=== PATIENT | female | born 1985 | race Caucasian/White ===

== ENCOUNTER 2017-05-11 14:14 | Emergency (ER) | payer SELFPAY ==
[~2017-05-11] VITALS: Ht 162.6 cm; Wt 88.5 kg
--- NOTE | 2017-05-11 14:37 | PHYS DOC ---
Past History Past Medical History: Fibromyalgia Past Surgical History: Appendectomy, , Gastric Bypass, Tonsillectomy Smoking: Non-smoker Alcohol Use: Occasionally Drug Use: None Adult General Chief Complaint Chief Complaint: FACE PROBLEM HPI HPI Patient is a pleasant 31-year-old otherwise healthy female who presents with a history of fibromyalgia who was struck in the face by a softball late last evening while playing a game with her colleagues. She was not wearing a facemask helmet and she was struck by the ball as he came off the hitters back. It struck her on the chin. She denies any loss of conscious, denies any focal neurologic deficits but has complained about amnesia to the event. She is suffering from bilateral lower jaw pain that is increased with moving her jaw chewing food and direct pressure over the cheeks. Patient denies any problems swallowing, change in her voice. Patient has not taken anything to help with her symptoms. She does admit she was drinking alcohol last night prior to the injury. Review of Systems Review of Systems Constitutional: Denies fever or chills [] Eyes: Denies change in visual acuity, redness, or eye pain [] HENT: Denies nasal congestion or sore throat [] Respiratory: Denies cough or shortness of breath [] Cardiovascular: No additional information not addressed in HPI [] GI: Denies abdominal pain, nausea, vomiting, bloody stools or diarrhea [] : Denies dysuria or hematuria [] Musculoskeletal: Denies back pain or joint pain [] Integument: Denies rash or skin lesions [] Neurologic: She does complain of a headache and jaw pain bilaterally. Endocrine: Denies polyuria or polydipsia [] Current Medications Current Medications Current Medications Medications (Trade) Dose Ordered Sig/Joselito Start Time Stop Time Status Last Admin Dose Admin Acetaminophen/ Hydrocodone Bitart (Lortab 5/325) 2 tab 1X ONCE 05/11/17 14:45 05/11/17 14:46 UNV Allergies Allergies Allergies Coded Allergies Type Severity Reaction Last Updated Verified azithromycin Allergy Intermediate jittery 12/14/13 Yes Penicillins Allergy Unknown 12/14/13 Yes Physical Exam Physical Exam The vital signs recorded on the note in the chart by nursing staff she is noted to be hypertensive. Constitutional: Well developed, well nourished, no acute distress, non-toxic appearance. [] HENT: Normocephalic, atraumatic, bilateral external ears normal, oropharynx moist, no oral exudates, nose normal. He does have evidence of tenderness at each of the TMJs bilaterally there is no locking or popping on evaluation of her oropharynx. Patient has no hematoma the floor the mouth. She has a negative tongue blade test Eyes: PERRLA, EOMI, conjunctiva normal, no discharge. [] Neck: Normal range of motion, no tenderness, supple, no stridor. [] Cardiovascular:Heart rate regular rhythm, no murmur [] Lungs & Thorax: Bilateral breath sounds clear to auscultation [] Skin: Warm, dry, no erythema, no rash. [Patient is a small 1.5 x 1.5 cm ecchymoses circular and round the right side of the chin. Patient has no midfacial instability consistent with a LeFort's fracture. Back: No tenderness, no CVA tenderness. [] Extremities: No tenderness, no cyanosis, no clubbing, ROM intact, no edema. [] Neurologic: Alert and oriented X 3, normal motor function, normal sensory function, no focal deficits noted. [] Psychologic: Affect normal, judgement normal, mood normal. [] EKG EKG [] Radiology/Procedures Radiology/Procedures [] [address] [place] [address] IMAGING REPORT Signed PATIENT: MADISON OLIVER ACCOUNT: [id number] : 1985 LOCATION: ER AGE: 31 SEX: F EXAM STATUS: REG ER ORD. PHYSICIAN: MARCELA LUNA MD REASON: trauma PROCEDURE: CT HEAD AND MAXILLOFACIAL WO CT head and max a facial without contrast 05/11/2017 Indication: Softball injury to the jaw with pain behind left ear. Comparison: None available Technique: Multiple axial noncontrast CT images of the head were obtained from the skull base through the vertex. Noncontrast CT images of the maxillofacial structures were performed with coronal and sagittal reformats provided. Findings: Head: The ventricles, sulci and basal cisterns are within normal limits. Murry-white matter differentiation is normal. There is no acute intracranial hemorrhage. There is no mass, mass effect or midline shift. Posterior fossa is within normal limits. Sellar and suprasellar cistern appear normal. Maxillofacial: Orbits are normal in appearance. Extraocular muscles are normal. Lamina appreciated is intact. Minimal mucosal thickening is noted within the left maxillary sinus. Otherwise, the paranasal sinuses are well aerated. Nasal septum is deviated to the left. Maxilla is intact. Pterygoid plates are normal. There is no acute fracture involving the mandible. Mandibular condyles are well seated without dislocation. No significant soft tissue abnormality is identified. Visualized portions of the submandibular space, and floor of mouth are normal. The dentition appear normal. Mastoid air cells are well aerated. Scalp and calvaria are normal. Impression: 1. There is no acute intracranial hemorrhage. 2. No acute fracture involving the maxillofacial structures. Course & Med Decision Making Course & Med Decision Making Pertinent Labs and Imaging studies reviewed. (See chart for details) Plan on arrival was to have CT of the head and face completed to ensure that no jaw fracture is present. Patient offered analgesic control to help with her symptoms. At this point her neuro exam is normal she has no midline tenderness to palpation over the neck is no reason for CT of the cervical spine. By history and physical patient may have suffered a concussion. Even if there are head CT is negative we will refer her to the concussion clinic for continued management. [] At this point CT scan of the head and face reveal no acute fracture no acute intracranial injury. I reviewed these images myself and agree with radiologist report. Patient tells me that their symptoms given during CC are improved. We reviewed labs and radiology reports with patient at the bedside. Patient's pressures significantly improved with pain management. It is now at 125/72 Impression: Chin contusion, TMJ strain. Dragon Disclaimer Dragon Disclaimer This chart was dictated in whole or in part using Voice Recognition software in a busy, high-work load, and often noisy Emergency Department environment. It may contain unintended and wholly unrecognized errors or omissions. Departure Departure: Impression: Primary Impression: Contusion of face Additional Impression: Strain of jaw Disposition: 01 HOME, SELF-CARE Condition: IMPROVED Referrals: PCP,NO (PCP) Patient Instructions: Concussion and Brain Injury, Facial or Scalp Contusion, Jaw, Range of Motion Exercises, [id number] Additional Instructions: Please use a soft mechanical diet for the next 48-72 hours to help manage her symptoms. Please return for any new or increasing symptoms of jaw pain despite treatment or if you have any questions or concerns. Scripts Hydrocodone Bit/Acetaminophen (HYDROCODONE-APAP 5-325 ) 1 Each Tablet 1 TAB PO PRN Q6HRS Y for PAIN for 5 Days, #10 TAB 0 Refills Prov: MARCELA LUNA MD 05/11/17 Problem Qualifiers MARCELA LUNA MD May 11, 2017 14:37
[2017-05-11] MEDS ORDERED: HYDROcodone/APAP 5/325MG 1 TAB TABLET PO ONE (15:00)
--- NOTE | 2017-05-11 15:27 | RAD ---
CT head and max a facial without contrast 05/11/2017 Indication: Softball injury to the jaw with pain behind left ear. Comparison: None available Technique: Multiple axial noncontrast CT images of the head were obtained from the skull base through the vertex. Noncontrast CT images of the maxillofacial structures were performed with coronal and sagittal reformats provided. Findings: Head: The ventricles, sulci and basal cisterns are within normal limits. Murry-white matter differentiation is normal. There is no acute intracranial hemorrhage. There is no mass, mass effect or midline shift. Posterior fossa is within normal limits. Sellar and suprasellar cistern appear normal. Maxillofacial: Orbits are normal in appearance. Extraocular muscles are normal. Lamina appreciated is intact. Minimal mucosal thickening is noted within the left maxillary sinus. Otherwise, the paranasal sinuses are well aerated. Nasal septum is deviated to the left. Maxilla is intact. Pterygoid plates are normal. There is no acute fracture involving the mandible. Mandibular condyles are well seated without dislocation. No significant soft tissue abnormality is identified. Visualized portions of the submandibular space, and floor of mouth are normal. The dentition appear normal. Mastoid air cells are well aerated. Scalp and calvaria are normal. Impression: 1. There is no acute intracranial hemorrhage. 2. No acute fracture involving the maxillofacial structures. PQRS Compliance Statement: One or more of the following individualized dose reduction techniques were utilized for this examination: 1. Automated exposure control 2. Adjustment of the mA and/or kV according to patient size 3. Use of iterative reconstruction technique
[2017-05-11 15:30] VITALS: BP 129/71
[2017-05-11] MEDS ORDERED: HYDR-2758 PO (15:40)
== END 2017-05-11 15:50 | disposition home or self-care (01) ==
LOC: ER 14:14
DX: S00.83XA Contusion of other part of head, initial encounter (principal); S03.41XA Sprain of jaw, right side, initial encounter; M79.7 Fibromyalgia; Z88.0 Allergy status to penicillin; Z88.1 Allergy status to other antibiotic agents; W21.07XA Struck by softball, initial encounter; Y93.64 Activity, baseball; Y99.8 Other external cause status; Y92.89 Other specified places as the place of occurrence of the external cause
CPT/HCPCS: 70450; 70486; 99284-25

== ENCOUNTER 2018-03-25 13:31 | Emergency (ER) | payer SELFPAY ==
[~2018-03-25 13:31] MED LIST: HYDR-2758 PO
[2018-03-25 13:36] VITALS: BP 150/97
[2018-03-25] MEDS ORDERED: FAMO-63 PO (14:31)
[2018-03-25] MEDS ORDERED: HYDR25TA PO (14:31)
--- NOTE | 2018-03-25 14:31 | PHYS DOC ---
Past History Past Medical History: Fibromyalgia Past Surgical History: Appendectomy, , Gastric Bypass, Tonsillectomy Smoking: Non-smoker Alcohol Use: Occasionally Drug Use: Marijuana Adult General Chief Complaint Chief Complaint: INSECT BITE HPI HPI 32-year-old female patient states she had bee sting to abdominal wall while she was tanning and felt shortness of breath that improved with taking Benadryl. Patient states she had history of allergic reaction to bee sting and afraid of the same reaction. Patient denies shortness of breath or throat swelling at this time. Review of Systems Review of Systems Constitutional: Denies fever or chills [] Eyes: Denies change in visual acuity, redness, or eye pain [] HENT: Denies nasal congestion or sore throat [] Respiratory: Denies cough or shortness of breath [] Cardiovascular: No additional information not addressed in HPI [] GI: Denies abdominal pain, nausea, vomiting, bloody stools or diarrhea [] : Denies dysuria or hematuria [] Musculoskeletal: Denies back pain or joint pain [] Integument: Denies rash or skin lesions [] Neurologic: Denies headache, focal weakness or sensory changes [] Endocrine: Denies polyuria or polydipsia [] All other systems were reviewed and found to be within normal limits, except as documented in this note. Allergies Allergies Allergies Coded Allergies Type Severity Reaction Last Updated Verified azithromycin Allergy Intermediate jittery 12/14/13 Yes Penicillins Allergy Unknown 12/14/13 Yes Physical Exam Physical Exam Constitutional: Well nourished, no acute distress, non-toxic appearance. [] HENT: Normocephalic, atraumatic, bilateral external ears normal, oropharynx moist, no oral exudates, nose normal. [] Eyes: PERRLA, EOMI, conjunctiva normal, no discharge. [] Neck: Normal range of motion, no tenderness, supple, no stridor. [] Cardiovascular:Heart rate regular rhythm, no murmur [] Lungs & Thorax: Bilateral breath sounds clear to auscultation [] Abdomen: Bowel sounds normal, soft, no tenderness, no masses, no pulsatile masses. [] Skin: Warm, dry, no erythema, 2 small area of erythema and abdominal wall without erythema or tenderness Back: No tenderness, no CVA tenderness. [] Extremities: No tenderness, no cyanosis, no clubbing, ROM intact, no edema. [] Neurologic: Alert and oriented X 3, normal motor function, normal sensory function, no focal deficits noted. [] Psychologic: Affect normal, judgement normal, mood normal. [] EKG EKG [] Radiology/Procedures Radiology/Procedures [] Course & Med Decision Making Course & Med Decision Making discharge: I've spoken with the patient and/or caregivers. I've explained the patient's condition, diagnosis and treatment plan based on information available to me at this time. I've answered the patient's and/or caregivers questions and addressed any concerns. The patient and/or caregivers have a good understanding the patient's diagnosis, condition and treatment plan as can be expected at this point. Vital signs have been stabilized. The patient's condition is stable for discharge from the emergency department. The patient will pursue further outpatient evaluation with her primary care provider or other designated consulting physician as outlined in the discharge instructions. Patient and/or caregivers are agreeable to this plan of care and follow-up instructions have been explained in detail. The patient and/or caregivers have received these instructions in written format and expressed understanding of these discharge instructions. The patient and her caregivers are aware that if any significant change in condition or worsening of symptoms should prompt him to immediately return to this of the closest emergency department. If an emergent department is not readily available I would encourage him to call 911. Rual Disclaimer Raul Disclaimer This electronic medical record was generated, in whole or in part, using a voice recognition dictation system. Departure Departure: Impression: Primary Impression: Insect bite Disposition: HOME, SELF-CARE (At 1429) Condition: STABLE Referrals: PCP,NO (PCP) Patient Instructions: Insect Bite Additional Instructions: Drink plenty of liquids Follow-up with your primary care physician in 3-5 days Return to ER if not getting better Scripts Hydroxyzine Hcl (HYDROXYZINE HCL) 25 Mg Tablet 1 TAB PO TID, #15 TAB Prov: YVONNE ANGULO MD 03/25/18 Famotidine (PEPCID) 20 Mg Tablet 1 TAB PO BID, #10 TAB 3 Refills Prov: YVONNE ANGULO MD 03/25/18 YVONNE ANGULO MD Mar 25, 2018 14:31
== END 2018-03-25 14:43 | disposition home or self-care (01) ==
LOC: ER 13:31
DX: T63.441A Toxic effect of venom of bees, accidental (unintentional), initial encounter (principal); M79.7 Fibromyalgia; Z88.1 Allergy status to other antibiotic agents; Z88.0 Allergy status to penicillin; Y92.89 Other specified places as the place of occurrence of the external cause
CPT/HCPCS: 99283

== ENCOUNTER 2019-04-23 11:53 | Emergency (ER) | payer SELFPAY ==
[~2019-04-23] VITALS: Ht 162.6 cm; Wt 108.9 kg
[~2019-04-23 11:53] MED LIST changes: +FAMO-63 PO; +HYDR-2155 PO; -HYDR-2758 PO; +HYDR25TA PO
--- NOTE | 2019-04-23 12:28 | PHYS DOC ---
Past History Past Medical History: Fibromyalgia Past Surgical History: Appendectomy, Cholecystectomy, , Tonsillectomy, Other Smoking: Non-smoker Alcohol Use: Occasionally Drug Use: None Adult General Chief Complaint Chief Complaint: DIFFICULTY SWALLOWING [facility] 33-year-old female presents with difficulty swallowing. She has noticed over the last 1 week that it seems like she has some intermittent pain with swallowing. He also feels like things go down more slowly. For the last 2 days, she's had a feeling of a lump in her throat almost all the time, especially with swallowing foods. She has some sensation of this with swallowing liquids or saliva. Patient had a Dennise-en-Y bypass years ago. She did not have a history of GERD prior to surgery. She has not been on medication since surgery either. She did try a couple of times yesterday and a Prilosec but they did not seem to help. She she denies fever or chills. No history of esophageal webs need for esophageal dilation. No family history of the same. Review of Systems Review of Systems Constitutional: Denies fever or chills [] Eyes: Denies change in visual acuity, redness, or eye pain [] HENT: Difficulty swallowing[] Respiratory: Denies cough or shortness of breath [] Cardiovascular: No additional information not addressed in HPI [] GI: Denies abdominal pain, nausea, vomiting, bloody stools or diarrhea [] : Denies dysuria or hematuria [] Musculoskeletal: Denies back pain or joint pain [] Integument: Denies rash or skin lesions [] Neurologic: Denies headache, focal weakness or sensory changes [] Endocrine: Denies polyuria or polydipsia [] All other systems were reviewed and found to be within normal limits, except as documented in this note. Allergies Allergies Allergies Coded Allergies Type Severity Reaction Last Updated Verified Penicillins Allergy Unknown 12/14/13 Yes Physical Exam Physical Exam Constitutional: Well developed, well nourished, no acute distress, non-toxic appearance. [] HENT: Normocephalic, atraumatic, bilateral external ears normal, oropharynx moist, no oral exudates, nose normal. [] Eyes: PERRLA, EOMI, conjunctiva normal, no discharge. [] Neck: Normal range of motion, no tenderness, supple, no stridor. [] Cardiovascular:Heart rate regular rhythm, no murmur [] Lungs & Thorax: Bilateral breath sounds clear to auscultation [] Abdomen: Bowel sounds normal, soft, no tenderness, no masses, no pulsatile masses. [] Skin: Warm, dry, no erythema, no rash. [] Back: No tenderness, no CVA tenderness. [] Extremities: No tenderness, no cyanosis, no clubbing, ROM intact, no edema. [] Neurologic: Alert and oriented X 3, normal motor function, normal sensory function, no focal deficits noted. [] Psychologic: Affect normal, judgement normal, mood normal. [] Current Patient Data Vital Signs Vital Signs Date Time Temp Pulse Resp B/P (MAP) Pulse Ox O2 Delivery O2 Flow Rate FiO2 04/23/19 12:00 98.4 69 20 99 Room Air EKG EKG [] Radiology/Procedures Radiology/Procedures [] Impressions: Exam performed: 2 views soft tissues neck HISTORY: Suspected foreign body. DATE OF SERVICE: 04/23/2019. COMPARISON: None available FINDINGS: AP and lateral view of the soft tissues neck is obtained. Slight reversal of cervical curvature, likely positional. Vertebral body heights and intervertebral disc spaces are maintained. There is no loulou or retrolisthesis. No compression fracture. No prevertebral soft tissue swelling or radiopaque foreign body is seen. Lung apices are clear. IMPRESSION: No acute abnormality seen. No radiopaque foreign body seen in the soft tissues of the neck. Electronically signed by: Padmini Schultz MD (04/23/2019 12:52 PM) [facility] DICTATED AND SIGNED BY: PADMINI SCHULTZ MD DATE: 04/23/19 [id number] CC: DUTCH CALIX DO; PCP,NO Course & Med Decision Making Course & Med Decision Making Pertinent Labs and Imaging studies reviewed. (See chart for details) The patient's soft tissue of the neck does not show any obvious abnormalities. There are no radiopaque foreign bodies. There is no obvious swelling. I wonder if the patient may be having difficulty with GERD. I will advise that she take Protonix or omeprazole for 14 days. She is stable for discharge at this time. [] Dragon Disclaimer Dragon Disclaimer This electronic medical record was generated, in whole or in part, using a voice recognition dictation system. Departure Departure: Impression: Primary Impression: Difficulty swallowing Additional Impression: GERD (gastroesophageal reflux disease) Disposition: HOME, SELF-CARE Condition: STABLE Referrals: PCP,NO (PCP) Patient Instructions: Diet for Gastroesophageal Reflux Disease, Adult, Ea sy-to-Read Scripts Pantoprazole Sodium (PROTONIX) 40 Mg Tablet.dr 1 TAB PO DAILY for GERD for 14 Days, #14 TAB 5 Refills Prov: DUTCH CALIX DO 04/23/19 Problem Qualifiers Primary Impression: Difficulty swallowing Dysphagia type: unspecified Qualified Codes: R13.10 - Dysphagia, unspecified Additional Impression: GERD (gastroesophageal reflux disease) Esophagitis presence: esophagitis presence not specified Qualified Codes: K21.9 - Gastro-esophageal reflux disease without esophagitis DUTCH CALIX DO Apr 23, 2019 12:28
--- NOTE | 2019-04-23 12:54 | RAD ---
Exam performed: 2 views soft tissues neck HISTORY: Suspected foreign body. DATE OF SERVICE: 04/23/2019. COMPARISON: None available FINDINGS: AP and lateral view of the soft tissues neck is obtained. Slight reversal of cervical curvature, likely positional. Vertebral body heights and intervertebral disc spaces are maintained. There is no loulou or retrolisthesis. No compression fracture. No prevertebral soft tissue swelling or radiopaque foreign body is seen. Lung apices are clear. IMPRESSION: No acute abnormality seen. No radiopaque foreign body seen in the soft tissues of the neck. Electronically signed by: Padmini Schultz MD (04/23/2019 12:52 PM) [facility]
[2019-04-23] MEDS ORDERED: PANT40TA3 PO (13:09)
[2019-04-23 13:34] VITALS: BP 120/80
== END 2019-04-23 13:32 | disposition home or self-care (01) ==
LOC: ER 11:53
DX: R13.10 Dysphagia, unspecified (principal); K21.9 Gastro-esophageal reflux disease without esophagitis; M79.7 Fibromyalgia; Z90.89 Acquired absence of other organs; Z88.0 Allergy status to penicillin
CPT/HCPCS: 70360; 99284

== ENCOUNTER 2019-12-11 10:28 | Emergency (ER) | payer SELFPAY ==
[~2019-12-11] VITALS: Ht 162.6 cm; Wt 111.5 kg
[~2019-12-11 10:28] MED LIST changes: +PANT40TA3 PO
--- NOTE | 2019-12-11 11:09 | PHYS DOC ---
Past History Past Medical History: Fibromyalgia Past Surgical History: Appendectomy, Cholecystectomy, , Gastric Bypass, Tonsillectomy Smoking: Non-smoker Alcohol Use: Occasionally Drug Use: None Adult General Chief Complaint Chief Complaint: UPPER EXTREMITY PAIN [facility] HPI Patient is a 34-year-old female who presents with complaint of numbness/tingling to her whole face as well as both shoulders and her upper chest that started this morning at about 9:30 AM when she was preparing dinner and a crock pot. She states that she has also had a cough for about a month. Patient states that symptoms have improved for the most part but she still has some lingering symptoms of tingling. She denies any fever, chest pain or shortness of breath. She also denies any nausea, vomiting or diaphoresis. Patient does indicate that she has history of low potassium.[] Review of Systems Review of Systems Constitutional: Denies fever or chills [] Respiratory: Denies cough or shortness of breath [] Cardiovascular: No additional information not addressed in HPI [] Musculoskeletal: Denies back pain or joint pain [] Integument: Denies rash or skin lesions [] Neurologic: Denies headache, focal weakness. Complains of numbness and tingling to face and upper body [] All other systems were reviewed and found to be within normal limits, except as documented in this note. Allergies Allergies Allergies Coded Allergies Type Severity Reaction Last Updated Verified Penicillins Allergy Unknown 12/14/13 Yes Physical Exam Physical Exam Constitutional: Well developed, well nourished, no acute distress, non-toxic appearance. [] HENT: Normocephalic, atraumatic, bilateral external ears normal, oropharynx moist, no oral exudates, nose normal. [] Eyes: PERRLA, EOMI, conjunctiva normal, no discharge. [] Neck: Normal range of motion, no tenderness, supple, no stridor. [] Cardiovascular:Heart rate regular rhythm, no murmur [] Lungs & Thorax: Bilateral breath sounds clear to auscultation [] Abdomen: Bowel sounds normal, soft, no tenderness. [] Skin: Warm, dry, no erythema, no rash. [] Extremities: No tenderness, no cyanosis, no clubbing, ROM intact, no edema. [] Neurologic: Alert and oriented X 3, no focal deficits noted. [] Current Patient Data Vital Signs Vital Signs Date Time Temp Pulse Resp B/P (MAP) Pulse Ox O2 Delivery O2 Flow Rate FiO2 12/11/19 10:35 97.5 83 20 124/79 (94) 100 Room Air EKG EKG [] Radiology/Procedures Radiology/Procedures [] Course & Med Decision Making Course & Med Decision Making Pertinent Labs and Imaging studies reviewed. (See chart for details) [] Dragon Disclaimer Dragon Disclaimer This electronic medical record was generated, in whole or in part, using a voice recognition dictation system. Departure Departure: Impression: Primary Impression: Paresthesia Disposition: 01 HOME, SELF-CARE Condition: STABLE Referrals: PCP,NO (PCP) Patient Instructions: ParMERLE Serrano Jr. DO Dec 11, 2019 11:09
[2019-12-11 11:21] LABS: BASO % 0 % (0-3); CALCIUM 8.6 mg/dL (8.5-10.1); CREATININE 0.7 mg/dL (0.6-1.0); EOS # 0.1 x10^3/uL (0.0-0.7); EOS % 2 % (0-3); GFR 96.4; HEMATOCRIT 40.5 % (36.0-47.0); HEMOGLOBIN 13.5 g/dL (12.0-15.5); LYMPH # 1.5 x10^3/uL (1.0-4.8); LYMPH % 27 % (24-48); MEAN CORPUSCULAR HEMOGLOBIN 32 pg (25-35); MEAN CORPUSCULAR HGB CONC 33 g/dL (31-37); MEAN CORPUSCULAR VOLUME 95 fL (79-100); MONO # 0.3 x10^3/uL (0.0-1.1); MONO % 6 % (0-9); NEUT # 3.5 x10^3uL (1.8-7.7); NEUT % 64 % (31-73); PLATELET COUNT 300 x10^3/uL (140-400); POTASSIUM 3.5 mmol/L (3.5-5.1); RED BLOOD COUNT 4.27 x10^6/uL (3.50-5.40); RED CELL DISTRIBUTION WIDTH 12.5 % (11.5-14.5); WHITE BLOOD COUNT 5.5 x10^3/uL (4.0-11.0)
[2019-12-11 12:15] VITALS: BP 98/59
== END 2019-12-11 12:24 | disposition home or self-care (01) ==
LOC: ER 10:28
DX: R20.2 Paresthesia of skin (principal); M79.7 Fibromyalgia; Z98.84 Bariatric surgery status; Z88.0 Allergy status to penicillin
CPT/HCPCS: 36415; 80048; 85025; 99283

== ENCOUNTER 2020-02-09 09:16 | Emergency (ER) | payer SELFPAY ==
[~2020-02-09] VITALS: Ht 160 cm; Wt 113.3 kg
[2020-02-09 09:16] VITALS: BP 140/94
[2020-02-09 10:05] LABS: BILIRUBIN,URINE NEG (NEG); CLARITY,URINE CLEAR; COLOR,URINE YELLOW; GLUCOSE,URINE NEG (NEG); NITRITE,URINE NEG (NEG); UROBILINOGEN,URINE 0.2 mg/dL (0.2 mg/dL)
[2020-02-09 10:14] LABS: BACTERIA,URINE 0 /HPF (0-FEW); SQUAMOUS EPITHELIAL CELL,UR FEW /LPF; U PREG PATIENT NEGATIVE (NEG)
[2020-02-09] MEDS ORDERED: PHEN-318 PO (10:23)
[2020-02-09] MEDS ORDERED: NITR100C62 PO (10:23)
--- NOTE | 2020-02-09 10:23 | PHYS DOC ---
Past History Past Medical History: Fibromyalgia Past Surgical History: Appendectomy, Cholecystectomy, , Gastric Bypass, Tonsillectomy Smoking: Non-smoker Alcohol Use: Occasionally Drug Use: None General Adult EDM: Chief Complaint: PAIN ON URINATION HPI: HPI: Patient is a 34-year-old otherwise healthy female who presents with a 2 to 3-day history of dysuria and now some gross hematuria. She states she has some pain in her back and a heaviness feeling in the suprapubic area. She states she has had some urinary frequency and urgency. She tried Azo-Standard at home but this did not seem to help. [] Review of Systems: Review of Systems: Constitutional: Denies fever or chills Eyes: Denies change in visual acuity HENT: Denies nasal congestion or sore throat Respiratory: Denies cough or shortness of breath Cardiovascular: Denies chest pain or edema GI: Denies abdominal pain, nausea, vomiting, bloody stools or diarrhea : Per HPI Musculoskeletal: Denies back pain or joint pain Integument: Denies rash Neurologic: Denies headache, focal weakness or sensory changes Endocrine: Denies polyuria or polydipsia Lymphatic: Denies swollen glands Psychiatric: Denies depression or anxiety Heart Score: Risk Factors: Risk Factors: DM, Current or recent (<one month) smoker, HTN, HLP, family history of CAD, obesity. Risk Scores: Score 0 - 3: 2.5% MACE over next 6 weeks - Discharge Home Score 4 - 6: 20.3% MACE over next 6 weeks - Admit for Clinical Observation Score 7 - 10: 72.7% MACE over next 6 weeks - Early Invasive Strategies Allergies: Allergies: Allergies Coded Allergies Type Severity Reaction Last Updated Verified Penicillins Allergy Unknown 12/14/13 Yes Physical Exam: PE: Constitutional: Well developed, well nourished, no acute distress, non-toxic appearance. [] HENT: Normocephalic, atraumatic, bilateral external ears normal, oropharynx moist, no oral exudates, nose normal. [] Eyes: PERRLA, EOMI, conjunctiva normal, no discharge. [] Neck: Normal range of motion, no tenderness, supple, no stridor. [] Cardiovascular:Heart rate regular rhythm, no murmur [] Lungs & Thorax: Bilateral breath sounds clear to auscultation [] Abdomen: Obese, bowel sounds normal, soft, no tenderness, no masses, no pulsatile masses. [] Skin: Warm, dry, no erythema, no rash. [] Back: No tenderness, no CVA tenderness. [] Extremities: No tenderness, no cyanosis, no clubbing, ROM intact, no edema. [] Neurologic: Alert and oriented X 3, normal motor function, normal sensory function, no focal deficits noted. [] Psychologic: Affect normal, judgement normal, mood normal. [] Current Patient Data: Labs: Laboratory Tests Test 02/09/20 09:32 02/09/20 09:38 Urine Collection Type Unknown Urine Color Yellow Urine Clarity Clear Urine pH 6.0 Urine Specific [place] 1.015 Urine Protein Neg (NEG-TRACE) Urine Glucose (UA) Neg mg/dL (NEG) Urine Ketones (Stick) Neg mg/dL (NEG) Urine Blood Mod (NEG) Urine Nitrite Neg (NEG) Urine Bilirubin Neg (NEG) Urine Urobilinogen Dipstick 0.2 mg/dL (0.2 mg/dL) Urine Leukocyte Esterase Trace (NEG) Urine RBC 1-2 /HPF (0-2) Urine WBC 5-10 /HPF (0-4) Urine Squamous Epithelial Cells Few /LPF Urine Bacteria 0 /HPF (0-FEW) Urine Test Negative (NEG) POC Urine HCG, Qualitative hcg negative (Negative) EKG: EKG: [] Radiology/Procedures: Radiology/Procedures: [] Course & Med Decision Making: Course & Med Decision Making Pertinent Labs and Imaging studies reviewed. (See chart for details) [] Dragon Disclaimer: Dragon Disclaimer: This electronic medical record was generated, in whole or in part, using a voice recognition dictation system. Departure Departure: Impression: Primary Impression: Urinary tract infection Qualified Codes: N30.01 - Acute cystitis with hematuria Disposition: HOME/RESIDENCE PRIOR TO ADM Condition: STABLE Referrals: PCP,NO (PCP) Patient Instructions: Urinary Tract Infection Scripts Phenazopyridine Hcl (PYRIDIUM) 200 Mg Tablet 200 MG PO Q8HRS for urinary tract infection, #10 TAB Prov: MINOR MARTIN DO 02/09/20 Nitrofurantoin Monohyd/M-Cryst (MACROBID 100 MG CAPSULE) 100 Mg Capsule 1 CAP PO BID for UTI, #10 CAP Prov: MINOR MARTIN DO 02/09/20 MINOR MARTIN DO February 09, 2020 10:23
== END 2020-02-09 10:25 | disposition home or self-care (01) ==
LOC: ER 09:16
DX: N30.01 Acute cystitis with hematuria (principal); M79.7 Fibromyalgia; Z90.89 Acquired absence of other organs; Z90.49 Acquired absence of other specified parts of digestive tract; Z98.890 Other specified postprocedural states; Z98.84 Bariatric surgery status; Z88.0 Allergy status to penicillin
CPT/HCPCS: 81001; 81025; 87086; 99283

== ENCOUNTER 2020-03-21 22:04 | Emergency (ER) | payer SELFPAY ==
[~2020-03-21] VITALS: Ht 160 cm; Wt 113.3 kg
[~2020-03-21 22:04] MED LIST changes: +NITR100C62 PO; +PHEN-318 PO
--- NOTE | 2020-03-21 22:13 | PHYS DOC ---
Past History Past Medical History: Fibromyalgia, UTI Past Surgical History: Appendectomy, Cholecystectomy, , Gastric Bypass, Tonsillectomy Smoking: Non-smoker Alcohol Use: Occasionally Drug Use: None General Adult EDM: Chief Complaint: Finger problem HPI: HPI: 34-year-old female presents with laceration of the right fifth digit. The patient was getting out of her car and when she closed the door, she caught her right, distal fifth digit in the door. She knew that it smashed it pretty good. She got her finger out and ran inside. She rinsed it under cold water and then discovered that she had a laceration of the lateral side next to her fourth digit. She denies any other injuries or complaints. Review of Systems: Review of Systems: Constitutional: Denies fever or chills Eyes: Denies change in visual acuity HENT: Denies nasal congestion or sore throat Respiratory: Denies cough or shortness of breath Cardiovascular: Denies chest pain or edema GI: Denies abdominal pain, nausea, vomiting, bloody stools or diarrhea : Denies dysuria Musculoskeletal: Right fifth digit pain and laceration Integument: Denies rash Neurologic: Denies headache, focal weakness or sensory changes Endocrine: Denies polyuria or polydipsia Lymphatic: Denies swollen glands Psychiatric: Denies depression or anxiety Heart Score: Risk Factors: Risk Factors: DM, Current or recent (<one month) smoker, HTN, HLP, family history of CAD, obesity. Risk Scores: Score 0 - 3: 2.5% MACE over next 6 weeks - Discharge Home Score 4 - 6: 20.3% MACE over next 6 weeks - Admit for Clinical Observation Score 7 - 10: 72.7% MACE over next 6 weeks - Early Invasive Strategies Allergies: Allergies: Allergies Coded Allergies Type Severity Reaction Last Updated Verified Penicillins Allergy Unknown 12/14/13 Yes Physical Exam: PE: Constitutional: Well developed, well nourished, no acute distress, non-toxic appearance. [] HENT: Normocephalic, atraumatic, bilateral external ears normal, oropharynx moist, no oral exudates, nose normal. [] Eyes: PERRLA, EOMI, conjunctiva normal, no discharge. [] Neck: Normal range of motion, no tenderness, supple, no stridor. [] Cardiovascular:Heart rate regular rhythm, no murmur [] Lungs & Thorax: Bilateral breath sounds clear to auscultation [] Abdomen: Bowel sounds normal, soft, no tenderness, no masses, no pulsatile masses. [] Skin: Laceration of the right fifth digit distal to be DIP, some bruising, mild active bleeding. [] Back: No tenderness, no CVA tenderness. [] Extremities: No tenderness, no cyanosis, no clubbing, ROM intact, no edema. [] Neurologic: Alert and oriented X 3, normal motor function, normal sensory function, no focal deficits noted. [] Psychologic: Affect normal, judgement normal, mood normal. [] EKG: EKG: [] Radiology/Procedures: Radiology/Procedures: [] Course & Med Decision Making: Course & Med Decision Making Pertinent Labs and Imaging studies reviewed. (See chart for details) I was able to repair the patient's laceration with sutures. See note below for more details. I do not believe antibiotics are necessary. Her tetanus is up-to-date. she is stable for discharge at this time. [] Joselinon Disclaimer: Raul Disclaimer: This electronic medical record was generated, in whole or in part, using a voice recognition dictation system. Laceration Repair Lac Repair Indication: [] 1.5 cm linear laceration of the right little finger. Procedure: I obtained verbal consent from the patient for laceration repair with sutures. The wound was thoroughly irrigated with saline. No foreign bodies were found. I anesthetized the wound with 2.5 cc of 1% lidocaine without epinephrine. A digital block was used. Once good anesthesia was achieved, I placed two 4-0 Ethilon sutures in an interrupted fashion. There was good skin approximation. The wound was covered with a nonadherent dressing. Total repaired wound length: 1.5 cm Other Items: None The patient tolerated the procedure well Complications: None Departure Departure: Impression: Primary Impression: Finger laceration Qualified Codes: S61.216A - Laceration without foreign body of right little finger without damage to nail, initial encounter Disposition: 01 HOME/RESIDENCE PRIOR TO ADM Condition: STABLE Referrals: PCP,NO (PCP) Patient Instructions: Sutured Wound Care, [id number] Justification of Admission: Justification of Admission: Justification of Admission Dx: N/A DUTCH CALIX DO Mar 21, 2020 22:13
--- NOTE | 2020-03-21 22:56 | RAD ---
Exam: Right finger 3 views INDICATION: Pinky smashed in car door TECHNIQUE: Frontal view of the right hand with oblique and lateral views of the fifth digit Comparisons: None FINDINGS: Soft tissue irregularity along the radial aspect of the distal fifth digit. Bone mineralization is normal. No acute or healed fractures. Joint spaces are well-maintained. IMPRESSION: Likely laceration at the distal tip of the fifth digit without underlying osseous abnormality identified. Electronically signed by: Leandro Cruz MD (03/21/2020 10:53 PM) [id number]
== END 2020-03-21 23:50 | disposition home or self-care (01) ==
LOC: ER 22:04
DX: S61.216A Laceration without foreign body of right little finger without damage to nail, initial encounter (principal); M79.7 Fibromyalgia; Z88.0 Allergy status to penicillin; Z90.89 Acquired absence of other organs; Z90.49 Acquired absence of other specified parts of digestive tract; Z98.890 Other specified postprocedural states; W23.0XXA Caught, crushed, jammed, or pinched between moving objects, initial encounter; Y93.89 Activity, other specified; Y92.89 Other specified places as the place of occurrence of the external cause; Y99.8 Other external cause status
CPT/HCPCS: 12001; 73140; 99283

== ENCOUNTER 2020-05-04 02:11 | Emergency (ER) | payer SELFPAY ==
[~2020-05-04] VITALS: Ht 160 cm; Wt 113.3 kg
[2020-05-04] MEDS ORDERED: ONDANSETRON PF 4 MG/2 ML VIAL. ONE (02:15)
[2020-05-04] MEDS ORDERED: methylPREDNISolone SOD SUCC PF 125 MG/2 ML VIAL. ONE (02:16)
[2020-05-04] MEDS ORDERED: FAMOTIDINE 20 MG/2 ML VIAL ONE (02:16)
[2020-05-04] MEDS ORDERED: methylPREDNISolone SOD SUCC PF 125 MG/2 ML VIAL. IV ONE (02:30)
[2020-05-04] MEDS ORDERED: ONDANSETRON PF 4 MG/2 ML VIAL. IVP ONE (02:30)
[2020-05-04] MEDS ORDERED: FAMOTIDINE 20 MG/2 ML VIAL IVP ONE (02:30)
[2020-05-04] MEDS ORDERED: MULT-505 PO (02:46)
[2020-05-04] MEDS ORDERED: CETI10TA24 PO (02:57)
[2020-05-04] MEDS ORDERED: tylenol (02:58)
[2020-05-04] MEDS ORDERED: ibuprofen (02:58)
[2020-05-04 03:40] LABS: BASO % 0 % (0-3); EOS # 0.1 x10^3/uL (0.0-0.7); EOS % 1 % (0-3); HEMATOCRIT 38.7 % (36.0-47.0); HEMOGLOBIN 13.1 g/dL (12.0-15.5); LYMPH # 4.5 x10^3/uL (1.0-4.8); LYMPH % 56 % (24-48); MEAN CORPUSCULAR HEMOGLOBIN 32 pg (25-35); MEAN CORPUSCULAR HGB CONC 34 g/dL (31-37); MEAN CORPUSCULAR VOLUME 95 fL (79-100); MONO # 0.4 x10^3/uL (0.0-1.1); MONO % 5 % (0-9); NEUT % 37 % (31-73); PLATELET COUNT 255 x10^3/uL (140-400); RED BLOOD COUNT 4.08 x10^6/uL (3.50-5.40); RED CELL DISTRIBUTION WIDTH 13.9 % (11.5-14.5)
[2020-05-04 03:41] LABS: CALCIUM 8.5 mg/dL (8.5-10.1); CREATININE 0.9 mg/dL (0.6-1.0); GFR 72.1
--- NOTE | 2020-05-04 03:51 | RAD ---
AP chest x-ray HISTORY: Vomiting. FINDINGS: Heart size normal. Mediastinal silhouette is normal. No pneumothorax, pulmonary opacities or pleural effusions. The bones are unremarkable. IMPRESSION: No acute process. Electronically signed by: Russell Herr MD (05/04/2020 3:48 AM) [facility] [place]
[2020-05-04] MEDS ORDERED: EPIN0.3A4 IM (05:26)
[2020-05-04] MEDS ORDERED: DIPH25CA58 PO (05:26)
--- NOTE | 2020-05-04 05:26 | PHYS DOC ---
Past History Past Medical History: Asthma, Fibromyalgia, UTI Past Surgical History: Appendectomy, Cholecystectomy, , Gastric Bypass, Tonsillectomy Smoking: Non-smoker Alcohol Use: Occasionally Drug Use: None General Adult EDM: Chief Complaint: ALLERGIC REACTION HPI: HPI: 34 yo F PMH asthma and fibromyalgia, presents to the ED with complaints of upper lip swelling and dry heaving after patient ate made mac & cheese, history of whey protein (believes cheese packet contained whey-has never had this type before). Patient states she had been out drinking at the bar, came home for food and symptoms started about 45 minutes prior to arrival, around 1 AM. Reports she took 3 Benadryl before coming in. Reports an allergy 6 years ago to whey protein and she went to an [facility] and was tested for it. Has never required epinephrine or an intubation. No lung disease. Review of systems: Denies associated fever, chills, cough, sore throat, facial swelling, tongue swelling, shortness of breath, drooling, changes in speech, chest pain or pressure, dyspnea, hemoptysis, orthopnea, leg swelling, rash, abdominal or back pain, nausea, vomiting, diarrhea, headache, blurry vision or neck stiffness. Current Medications: Current Meds: Current Medications Medications (Trade) Dose Ordered Sig/Joselito Start Time Stop Time Status Last Admin Dose Admin Famotidine (Pepcid Vial) 20 mg 1X ONCE 05/04/20 02:30 05/04/20 02:31 DC 05/04/20 02:15 20 MG Methylprednisolone Sodium Succinate (SOLU-Medrol 125MG VIAL) 125 mg 1X ONCE 05/04/20 02:30 05/04/20 02:31 DC 05/04/20 02:20 125 MG Ondansetron HCl (Zofran) 8 mg 1X ONCE 05/04/20 02:30 05/04/20 02:31 DC 05/04/20 02:15 8 MG Allergies: Allergies: Allergies Coded Allergies Type Severity Reaction Last Updated Verified whey Allergy Severe Anaphylaxis 05/04/20 Yes Penicillins Allergy Unknown 05/04/20 Yes Physical Exam: PE: Constitutional: Well developed, well nourished, no acute distress, non-toxic appearance. [] HENT: Normocephalic, atraumatic, bilateral external ears normal, oropharynx moist & patent w/no swelling, mallapati 1, upper right lip and some upper left lip w/edema/swelling, no oral exudates, nose normal. [] Eyes: EOMI, conjunctiva normal, no discharge. [] Neck: Normal range of motion, no tenderness, supple, no stridor. [] Cardiovascular:Heart rate regular rhythm, no murmur [] Lungs & Thorax: Bilateral breath sounds clear to auscultation [] Abdomen: Bowel sounds normal, soft, no tenderness, no masses, no pulsatile masses. [] dry heaving on arrival, resolved w/IV meds Skin: Warm, dry, no erythema, no rash. [] Back: No tenderness, no CVA tenderness. [] Extremities: No tenderness, no cyanosis, no clubbing, ROM intact, no edema. [] Neurologic: Alert and oriented X 3, normal motor function, normal sensory function, no focal deficits noted. [] Psychologic: Affect normal, judgement normal, mood normal. [] Current Patient Data: Labs: Laboratory Tests Test 05/04/20 02:14 White Blood Count 8.0 x10^3/uL (4.0-11.0) Red Blood Count 4.08 x10^6/uL (3.50-5.40) Hemoglobin 13.1 g/dL (12.0-15.5) Hematocrit 38.7 % (36.0-47.0) Mean Corpuscular Volume 95 fL (79-100) Mean Corpuscular Hemoglobin 32 pg (25-35) Mean Corpuscular Hemoglobin Concent 34 g/dL (31-37) Red Cell Distribution Width 13.9 % (11.5-14.5) Platelet Count 255 x10^3/uL (140-400) Neutrophils (%) (Auto) 37 % (31-73) Lymphocytes (%) (Auto) 56 % (24-48) H Monocytes (%) (Auto) 5 % (0-9) Eosinophils (%) (Auto) 1 % (0-3) Basophils (%) (Auto) 0 % (0-3) Neutrophils # (Auto) 3.0 x10^3uL (1.8-7.7) Lymphocytes # (Auto) 4.5 x10^3/uL (1.0-4.8) Monocytes # (Auto) 0.4 x10^3/uL (0.0-1.1) Eosinophils # (Auto) 0.1 x10^3/uL (0.0-0.7) Basophils # (Auto) 0.0 x10^3/uL (0.0-0.2) Sodium Level 136 mmol/L (136-145) Potassium Level 3.0 mmol/L (3.5-5.1) L Chloride Level 100 mmol/L (98-107) Carbon Dioxide Level 21 mmol/L (21-32) Anion Gap 15 (6-14) H Blood Urea Nitrogen 11 mg/dL (7-20) Creatinine 0.9 mg/dL (0.6-1.0) Estimated GFR (Cockcroft-Gault) 72.1 Glucose Level 107 mg/dL (70-99) H Calcium Level 8.5 mg/dL (8.5-10.1) Lipase 143 U/L (73-393) EKG: EKG: [] Radiology/Procedures: Radiology/Procedures: IMAGING REPORT Signed PATIENT: MADISON OLIVER ACCOUNT: [id number] : 1985 LOCATION: ER AGE: 34 SEX: F EXAM STATUS: REG ER ORD. PHYSICIAN: DEANNE OSORIO DO REASON: vomiting PROCEDURE: CHEST AP ONLY AP chest x-ray HISTORY: Vomiting. FINDINGS: Heart size normal. Mediastinal silhouette is normal. No pneumothorax, pulmonary opacities or pleural effusions. The bones are unremarkable. IMPRESSION: No acute process. Electronically signed by: Any Herr MD (05/04/2020 3:48 AM) [facility] [place] DICTATED AND SIGNED BY: ANY HERR MD DATE: 05/04/20 0348 CC: PCP,NO; DEANNE OSORIO DO ~ Course & Med Decision Making: Course & Med Decision Making Pertinent Labs and Imaging studies reviewed. (See chart for details) Concern for allergic reaction with angioedema of the upper lip, has almost fully resolved with steroids, Benadryl and Pepcid in the ED. Dry heaving resolved and chest x-ray showed no free air (no booerhaaves/jeannine almeida tears). Patient has been sleeping comfortably in the ED and was observed for a period of time, no worsening of symptoms. Mild hypokalemia 3.0 Will dc home with EpiPen (educated on this), prednisone, Benadryl and Pepcid. Strict ED return precautions were given for worsening swelling, difficulties breathing swelling of the face. Encouraged urgent outpatient follow-up with PMD. Life-threatening processes were considered but are low suspicion at this time, given history and physical exam. All patient's questions were answered and pt was stable at time of discharge. Differential includes anaphylaxis, angioedema, shock, contrast induced allergic reaction, carcinoid syndrome, asthma exacerbation, I spoken with the patient and her caregivers. I explained the patient's condition, diagnoses and treatment plan based on the information available to me at this time. I have answered the patient and her caregiver's questions and addressed any concerns. The patient and her caregivers have a good understanding of patient's diagnosis, condition and treatment plan as can be expected at this point. Vital signs have been stable. Patient's condition is stable and appropriate for discharge from the emergency department. Patient will pursue further outpatient evaluation with primary care physician or other designated or consulting physician as outlined in the discharge instruc tions. The patient and/or caregivers are agreeable to this plan of care and follow-up instructions have been explained in detail. The patient and/or caregivers have received these instructions in written form and have expressed an understanding of the discharge instructions. The patient and/or caregivers are aware that any significant change of condition or worsening of symptoms should prompt immediate return to this or the closest emergency department or call to 911. Raul Disclaimer: Raul Disclaimer: This electronic medical record was generated, in whole or in part, using a voice recognition dictation system. Departure Departure: Impression: Primary Impression: Allergic reaction Additional Impression: Swelling of upper lip Disposition: HOME/RESIDENCE PRIOR TO ADM Condition: STABLE Referrals: PCP,NO (PCP) Patient Instructions: Angioedema Scripts Diphenhydramine Hcl (BENADRYL) 25 Mg Capsule 1 CAP PO Q6HRS for itching for 30 Days, #120 CAP 0 Refills Prov: DEANNE OSORIO DO 05/04/20 Epinephrine (EPIPEN 2-CHAPIN) 0.3 Mg/0.3 Ml Auto.injct 1 SYR IM ONCE for shortness of breath for 1 Day, #1 PACKET 0 Refills Prov: DEANNE OSORIO DO 05/04/20 Justification of Admission: Justification of Admission: Justification of Admission Dx: N/A DEANNE OSORIO DO May 04, 2020 05:26
[2020-05-04 05:45] VITALS: BP 124/69
== END 2020-05-04 05:45 | disposition home or self-care (01) ==
LOC: ER 02:11
DX: T78.49XA Other allergy, initial encounter (principal); K13.0 Diseases of lips; J45.909 Unspecified asthma, uncomplicated; M79.7 Fibromyalgia; Z87.440 Personal history of urinary (tract) infections; Z88.0 Allergy status to penicillin; Z88.8 Allergy status to other drugs, medicaments and biological substances; X58.XXXA Exposure to other specified factors, initial encounter
CPT/HCPCS: 36415; 71045; 80048; 83690; 85025; 96374; 96375; 99284; J2405; J2930; J3490

== ENCOUNTER 2021-02-06 17:50 | Emergency (ER) | payer BC ==
[~2021-02-06] VITALS: Ht 160 cm; Wt 113.3 kg
[~2021-02-06 17:50] MED LIST changes: +CETI10TA74 PO; +DIPH25CA58 PO; +EPIN0.3A4 IM; +MULT-505 PO; +ibuprofen; +tylenol
[2021-02-06 19:09] LABS: HEMATOCRIT 38.7 % (36.0-47.0); HEMOGLOBIN 12.9 g/dL (12.0-15.5); RED BLOOD COUNT 4.01 x10^6/uL (3.50-5.40); RED CELL DISTRIBUTION WIDTH 12.5 % (11.5-14.5); WHITE BLOOD COUNT 4.4 x10^3/uL (4.0-11.0)
[2021-02-06] MEDS ORDERED: ACETAMINOPHEN 500 MG TABLET PO ONE ×2 (19:15→19:16)
[2021-02-06] MEDS ORDERED: DICYCLOMINE HCL 20 MG TABLET PO ONE (19:15)
[2021-02-06] MEDS ORDERED: DICYCLOMINE HCL 20 MG TABLET ONE (19:16)
[2021-02-06 19:17] LABS: U PREG PATIENT NEGATIVE (NEG)
--- NOTE | 2021-02-06 19:19 | PHYS DOC ---
Past History Past Medical History: Asthma, Fibromyalgia, UTI Additional Past Medical Histor: Carrier of Factor 5 Leiden Past Surgical History: Appendectomy, Cholecystectomy, , Gastric Bypass, Tonsillectomy Smoking: Non-smoker Alcohol Use: Occasionally Drug Use: None Adult General Chief Complaint Chief Complaint: VAGINAL BLEEDING HPI HPI Patient is a 35-year-old female, G2, P2 who presents to the emergency department with vaginal bleeding. States that 10 days ago she was a couple days late for her menstrual cycle, took a home test that was positive. States that yesterday she began what she thought was her menstrual cycle with some lower abdominal cramping and vaginal bleeding but seems much heavier than usual. States she does not use tampons or pads but uses cup and has felt that a couple times today. States she has not had this happen before. Denies any headache, chest pain, shortness of breath, other abdominal pain outside of the lower abdominal bilateral cramping, dysuria, blood in the stool, recent traumas, travels, fevers, cold/flu/Covid symptoms. Review of Systems Review of Systems Review of systems otherwise unremarkable except noted in HPI. Allergies Allergies Allergies Coded Allergies Type Severity Reaction Last Updated Verified whey Allergy Severe Anaphylaxis 05/04/20 Yes Penicillins Allergy Unknown 05/04/20 Yes Physical Exam Physical Exam Constitutional: Well developed, well nourished, no acute distress, non-toxic appearance. [] HENT: Normocephalic, atraumatic, bilateral external ears normal, oropharynx moist, no oral exudates, nose normal. [] Eyes: conjunctiva normal, no discharge. [] Neck: Normal range of motion, no tenderness, supple, no stridor. [] Cardiovascular:Heart rate regular rhythm, no murmur [] Lungs & Thorax: Bilateral breath sounds clear to auscultation [] Abdomen: soft, no tenderness, no masses, no pulsatile masses. [] Skin: Warm, dry, no erythema, no rash. [] Back: No tenderness, no CVA tenderness. [] Extremities: No tenderness, no cyanosis, no clubbing, ROM intact, no edema. [] Neurologic: Alert and oriented X 3, normal motor function, normal sensory function, no focal deficits noted. [] Psychologic: Affect normal, judgement normal, mood normal. [] Current Patient Data Vital Signs Vital Signs Date Time Temp Pulse Resp B/P (MAP) Pulse Ox O2 Delivery O2 Flow Rate FiO2 02/06/21 18:00 98.0 73 16 164/100 (121) 99 EKG EKG [] Radiology/Procedures Radiology/Procedures [] Heart Score C/O Chest Pain: No Risk Factors: Risk Factors: DM, Current or recent (<one month) smoker, HTN, HLP, family history of CAD, obesity. Risk Scores: Risk Factors: DM, Current or recent (<one month) smoker, HTN, HLP, family history of CAD, obesity. Course & Med Decision Making Course & Med Decision Making Patient is a 35-year-old female who presents with some vaginal bleeding, concern for positive 10 days ago and supposed to be on her menstrual cycle Vital signs notable for hypertension. Physical exam noted above. test is negative in the emergency department. Laboratory analysis not concerning. Vital signs including heart rate normal. Capillary refill normal. Moist mucous membranes. Patient asymptomatic after Tylenol. Discussed all findings with patient and advised it appears at least at this time she most likely is having her menstrual cycle. Advised to call her primary care physician as soon as she can to set up a follow-up visit. Gave strict return precautions to the ED. Patient grateful, verbalized understanding and agreed with plan of discharge. [] Dragon Disclaimer Dragon Disclaimer This electronic medical record was generated, in whole or in part, using a voice recognition dictation system. Departure Departure: Impression: Primary Impression: Vaginal bleeding Disposition: HOME / SELF CARE / HOMELESS Condition: GOOD Referrals: PCP,NO (PCP) Additional Instructions: You were seen in the emergency department today for vaginal bleeding. Your laboratory analysis was not concerning. Your test was negative. Your vital signs were reassuring. Your physical exam was also reassuring. It appears most likely that you are having your menstrual cycle at this time, but it would be a good idea to call your primary care physician first thing Tuesday morning to update on ED visit and set up a follow-up as soon as possible. Please come back to the emergency department immediately with new or concerning symptoms as discussed. GURWINDER BECKMAN MD February 06, 2021 19:19
[2021-02-06 19:30] VITALS: BP 133/87
[2021-02-06 19:37] LABS: BILIRUBIN,URINE NEG (NEG); CLARITY,URINE CLEAR; COLOR,URINE STRAW; GLUCOSE,URINE NEG (NEG); NITRITE,URINE NEG (NEG); UROBILINOGEN,URINE 0.2 mg/dL (0.2 mg/dL)
[2021-02-06 19:38] LABS: BACTERIA,URINE 0 /HPF (0-FEW); SQUAMOUS EPITHELIAL CELL,UR OCC /LPF; WBC,URINE 0 /HPF (0-4)
== END 2021-02-06 19:58 | disposition home or self-care (01) ==
LOC: ER 17:50
DX: N93.8 Other specified abnormal uterine and vaginal bleeding (principal); I10 Essential (primary) hypertension; Z88.0 Allergy status to penicillin; Z90.49 Acquired absence of other specified parts of digestive tract
CPT/HCPCS: 36415; 81001; 81025; 85027; 99283-25

== ENCOUNTER 2021-07-30 03:28 | Emergency (ER) | payer SELFPAY ==
[~2021-07-30] VITALS: Ht 162.6 cm; Wt 110.0 kg
[2021-07-30 03:38] VITALS: BP 136/84
[2021-07-30] MEDS ORDERED: DOXY100T PO (03:54)
--- NOTE | 2021-07-30 03:54 | PHYS DOC ---
Past History Past Medical History: Asthma, Fibromyalgia, UTI Additional Past Medical Histor: Carrier of Factor 5 Leiden Past Surgical History: Appendectomy, Cholecystectomy, , Gastric Bypass, Tonsillectomy Smoking: Non-smoker Additional Smoking Information: nicotine gum Alcohol Use: Occasionally Drug Use: None General Adult EDM: Chief Complaint: ANIMAL BITE HPI: HPI: Patient is a [age] year old [sex] who presents with [] Review of Systems: Review of Systems: Constitutional: Denies fever or chills Eyes: Denies redness or eye pain HENT: Denies nasal congestion or sore throat Respiratory: Denies cough or shortness of breath Cardiovascular: Denies chest pain or palpitations GI: Denies abdominal pain, nausea, or vomiting : Denies dysuria or hematuria Musculoskeletal: Denies back pain or joint pain Integument: Denies rash or skin lesions Neurologic: Denies headache, focal weakness or sensory changes Complete systems were reviewed and found to be within normal limits, except as documented in this note. Allergies: Allergies: Allergies Coded Allergies Type Severity Reaction Last Updated Verified whey Allergy Severe Anaphylaxis 07/30/21 Yes Penicillins Allergy Intermediate 07/30/21 Yes Physical Exam: PE: Constitutional: Well developed, well nourished, no acute distress, non-toxic appearance HENT: Normocephalic, atraumatic Eyes: PERRL, EOMI, conjunctiva normal, no discharge Neck: Normal range of motion, no tenderness, supple Lungs & Thorax: No respiratory distress, equal chest rise and fall Abdomen: Soft, no tenderness Skin: Warm, dry, no erythema, no rash Back: No tenderness, no CVA tenderness Extremities: No tenderness, ROM intact, no edema Neurologic: Alert and oriented X 3, normal motor function, normal sensory function, no focal deficits noted Psychologic: Affect normal, judgment normal Current Patient Data: Vital Signs: Vital Signs Date Time Temp Pulse Resp B/P (MAP) Pulse Ox O2 Delivery O2 Flow Rate FiO2 07/30/21 03:38 97.7 81 18 136/84 (101) 96 Nasal Cannula EKG: EKG: [] Radiology/Procedures: Radiology/Procedures: [] Heart Score: C/O Chest Pain: N/A Course & Med Decision Making: Course & Med Decision Making Patient stable for discharge with outpatient follow-up with PCP. Discussed findings and plan with patient, who acknowledges understanding and agreement. Raul Disclaimer: Raul Disclaimer: This electronic medical record was generated, in whole or in part, using a voice recognition dictation system. Departure Departure: Impression: Primary Impression: Dog bite of hand Qualified Codes: S61.459A - Open bite of unspecified hand, initial encounter; W54.0XXA - Bitten by dog, initial encounter Disposition: HOME / SELF CARE / HOMELESS Condition: STABLE Referrals: JORGITO BEAUCHAMP MD (PCP) Patient Instructions: Animal Bite, [id number] Additional Instructions: Do not soak your wound. You may shower. Clean wound daily with soap and water. Change dressing 2 times daily. Use over the counter antibiotic ointment with each dressing change. Use [id number] ibuprofen and or Tylenol for pain or discomfort. Please take oral antibiotic to completion. Scripts Doxycycline Hyclate (DOXYCYCLINE HYCLATE) 100 Mg Tablet 1 TAB PO BID for Dog bite for 14 Days, #28 TAB Prov: AMARIS SMITH DO 07/30/21 AMARIS SMITH DO Jul 30, 2021 03:54
[2021-07-30] MEDS ORDERED: DOXYCYCLINE HYCLATE 100 MG TABLET PO ONE (04:30)
[2021-07-30] MEDS ORDERED: NEOMY/BACITR/POLYMYXIN OINT PACKET. TP ONE (04:30)
[2021-07-30] MEDS ORDERED: DIPH,PERTUSS(ACELL),TET VAC/PF 0.5 ML SYRINGE. VAX IM ONE (04:30)
== END 2021-07-30 04:30 | disposition home or self-care (01) ==
LOC: ER 03:28
DX: S61.452A Open bite of left hand, initial encounter (principal); S61.451A Open bite of right hand, initial encounter; J45.909 Unspecified asthma, uncomplicated; M79.7 Fibromyalgia; F17.200 Nicotine dependence, unspecified, uncomplicated; Z87.440 Personal history of urinary (tract) infections; Z98.84 Bariatric surgery status; Z88.0 Allergy status to penicillin; Z88.8 Allergy status to other drugs, medicaments and biological substances; W54.0XXA Bitten by dog, initial encounter; Y93.89 Activity, other specified; Y92.89 Other specified places as the place of occurrence of the external cause; Y99.8 Other external cause status
CPT/HCPCS: 99283